=== PATIENT | male | born 1960 | race Caucasian/White ===

== ENCOUNTER 2017-04-26 10:22 | Day surgery (SDC) | payer MEDICARE ==
[~2017-04-26] VITALS: Ht 179.1 cm; Wt 97.4 kg
[~2017-04-26 10:22] MED LIST: ALPR0.5T99 PO; CEPH500C3 PO; LORT7.5T3 PO; PROZ20CA11 PO
[2017-04-26 10:57] VITALS: BP 156/71; PULSE 75; RESP 18; TEMP 98; O2SAT 98
[2017-04-26] MEDS ORDERED: ASPI81CH CHEW (10:58)
[2017-04-26 11:09] LABS: AUTOMATED NEUTROPHIL # 2.6 TH/MM3 (1.8-7.7); BASOPHIL % 0.9 % (0.0-2.0); EOSINOPHIL # 0.4 TH/MM3 (0-0.4); EOSINOPHIL % 7.3 % (0.0-4.0); HEMATOCRIT 39.5 % (39.0-51.0); HEMO FLAGS DIFF FINAL; LYMPH % 30.3 % (9.0-44.0); LYMPHOCYTE # 1.5 TH/MM3 (1.0-4.8); MEAN CELL VOLUME 86.2 FL (80.0-100.0); MEAN CORPUSCULAR HEMOGLOBIN 30.2 PG (27.0-34.0); NEUT % 54.5 % (16.0-70.0); PLATELET COUNT 164 TH/MM3 (150-450); RED BLOOD COUNT 4.58 MIL/MM3 (4.50-5.90); RED CELL DISTRIBUTION WIDTH 13.1 % (11.6-17.2); WHITE BLOOD COUNT 4.9 TH/MM3 (4.0-11.0)
[2017-04-26 11:14] LABS: INTERNATIONAL NORMALIZED RATIO 0.9 RATIO; PROTHROMBIN TIME - PATIENT 10.4 SEC (9.8-11.6)
[2017-04-26] MEDS ORDERED: ASPIRIN 81 MG CHEW TAB PO SCH (11:15)
[2017-04-26 11:23] LABS: BICARBONATE 25.7 MEQ/L (21.0-32.0); POTASSIUM 3.6 MEQ/L (3.5-5.1)
[2017-04-26] MEDS ORDERED: HEPARIN-NS/PF INJ 500 ML ONE (12:24)
[2017-04-26] MEDS ORDERED: MIDAZOLAM HCL 2 MG/2 ML VIAL ONE (12:30)
[2017-04-26] MEDS ORDERED: SODIUM CHLORIDE 0.9% FLUSH 10 ML FLUSH IV FLUSH PRN (13:00)
[2017-04-26] MEDS ORDERED: MISC INFORMATION XX ONE (13:00)
--- NOTE | 2017-04-26 13:10 | CATHPROC ---
[employer] HIS Report Study Information Study Number Admission Scheduled Start Study Start [id number] Apr 26 2017 10:22AM 04/26/2017 Apr 26 2017 12:05PM [place] [facility] Cardiac Catheterization Admit Source Facility Department Other [facility] - Director Of Consumer Marketing Physician and Clinical Staff Initial Sonny Lau Rotary Cutter Operator So Schofield,ANNIE Other cathlab, cathlab Recorder Alma Rust,RT(R) TECH2 Scrub Tony Spence,RT(R) Procedures Performed Procedure Location (Site) Vessel Name Coronary Angiograms LCA Left Coronary Coronary Angiograms RCA Right Coronary LV Gram-hand inj. LV LV Ventricle Equipment Time Tax Representative Description Size Mfg Part Number Used/Scraped TRANSDUCER, TRUWAVE [id number] 12:06 JAIMES VERDUGO * Used W/STOCKCOCK *[id number] [id number] *[id number] *[id number] 12:06 [employer] IND[employer]RIES PACK, CCL CUSTOM * Used *[id number] 12:06 [employer] PACER PEN, SKIN DUAL W/ RULER * Used *[id number] 12:06 [employer]ubs WIRE, 3MMJ .035 180CM 180CM Used *[id number] 12:06 NAMIC MANIFOLD, 4 PORT * Used *[id number] 12:06 NYCOMED OMNIPAQUE, 350 MG, 150ML 150ML [id number] Used [id number] 12:06 LÓPEZ MEDICAL BLANKET,WARM AIR CCL * Used *[id number] 12:06 [email or web address] MEDICAL SHEATH, FR4 TERUMO (10CM) FR 4 [id number] Used History: Current Medications Medication Dosage/Unit Route Frequency Last Date/Time Taken ASA LANTUS History: Allergies Allergy Reaction No Known Allergies History: Risk Factors Family History of Hypertension Dyslipidemia Previous CO Previous Heart Failure Premature CAD No No Yes No No Prior Valve Prior PCI Prior CABG Surgery No No No Cerebrovascular Peripheral Artery Chronic Lung On Dialysis Diabetes Disease Disease Disease No No No No No History: Symptoms/Diagnosis Selection Items Chest pain History: Stress Tests Stress or Imaging Studies Performed No History: Other Current Smoker Method Packs a Day Years Used Pack Years Yes Cigarettes 1 40 40 Labs Hgb (g/dl) Hct (%) RBC (MIL/MM3) WBC (l/cumm) Platelets (thousands) 11.60-17.00 35.00-51.00 4.00-5.90 4.00-11.00 150.00-450.00 13.8 39.5 4.5 4.9 164 Glucose (mg/dl) BUN (mg/dl) Creatinine (mg/dl) BUN:Creatinine (1:x) 74.00-106.00 7.00-18.00 0.50-1.30 10.00-20.00 95 13 0.9 14.4 Na (meq/l) K (meq/l) Cl (meq/l) CO2 (mmol/L) Ca (mg/dl) 136.00-145.00 3.50-5.10 98.00-107.00 21.00-32.00 8.50-10.10 141 3.6 108 25.7 8.6 PT (sec) INR (PTT:PT) 9.80-11.60 0.90-1.10 10.4 0.9 CPK-MB (ng/ML) 0.50-3.60 Not Drawn Medication Medication Total Dose (Bolus/Oral) Medication Total Dosage/Unit 1% XYLOCAINE 20 mL Medications (Bolus/Oral) Medication Time Given Dosage/Unit Administered By Reason 1% XYLOCAINE 04/26/2017 12:46:37 PM 20 mL Sonny Cuellar 20 mL 1% XYLOCAINE given in lab by Sonny Cuellar in Right Groin via Subcutaneous. Ordered by Sonny Zacarias. Medication (Drip) Medication Time Given Dosage/Unit Concentration/Unit Diluent (ml) Solution IV Solutions 04/26/2017 12:22:05 PM 0 mL (IV) 500 NaCl .9 IV Solutions given pre op by cathlab cathlab in Left Forearm via Peripheral IV. Pump/Drip Flow = 20 ml/hr using NaCl .9. Ordered by Sonny Cuellar. Initial Case Assessment Cardiovascular HR Rhythm NIBP Chest Pain 65 sr 148/72 0 Edema Present Skin color Skin None Normal Warm Dry Circulatory - Right Pulses Dorsalis Pedis Femoral 2 2 Scale (0,1,2,3,4,d) Circulatory - Left Pulses Dorsalis Pedis Femoral 2 2 Scale (0,1,2,3,4,d) Neurological State Oriented to time-place- Alert Moves all extremities person Respiration - General Respiration Rate SpO2 (%) (B/min) 18 98 Final Case Assessment Cardiovascular HR Rhythm NIBP Chest Pain 82 SR 140/82 0 Edema Present Skin color Skin None Normal Warm Dry Circulatory - Right Pulses Dorsalis Pedis Femoral 2 2 Scale (0,1,2,3,4,d) Scale (0,1,2,3,4,d) Neurological State Oriented to time-place- Alert Moves all extremities person Respiration - General Respiration Rate SpO2 (%) (B/min) 9 99 Chronological Log Time Study Chronological Log 12:15:51 Patient arrived via Bed. 12:16:19 Patient Name, D.O.B, / Armband Verified By R.N. Vitals capture started with the following parameters, Patient=Adult, Interval=5 min, Initial Pr dypyuo=962 mmHg, 12:21:24 Deflation Rate=5 mmHg 12:21:28 Pre-op and post- op instructions given; patient acknowledges understanding of instructions. 12:21:32 Presedation assessment performed by Director Of Consumer Marketing RN. 12:21:34 Patient has been NPO for More than 6Hrs. 12:21:35 Skin Breakdown- none per patient 12:21:43 Patient Warmer Placed on the Table. 12:21:44 Anna Prominences Protected 12:21:48 A # 20 IV was noted in the Forearm (left). Grade = 0 12:22:05 HR=72 bpm, RCSM=416/72 mmhg, SpO2=95.0 %, Resp=15 B/min, Pain=0, Keaton=10, Hankins=2 IV Solutions given pre op by cathlab, cathlab in Left Forearm via Peripheral IV. Pump/Drip Flow = 20 ml/hr using NaCl 12:22:05 .9. Ordered by Sonny Cuellar. 12:22:38 History and physical on the chart or being dictated. 12:22:44 Right groin prepped with 2% chlorhexidine, and with a 3 min. waiting time. Assessment: Initial Case, HR=65 BPM, Rhythm=sr, EXUG=464/72 mmhg, Chest Pain=0, Edema=None, Col or=Normal, Skin = Warm, Dry Right Pulses: Liu Ped=2, Femoral=2 12:22:48 Left Pulses: Liu Ped=2, Femoral=2 Neurological: State=Alert, Ox3, WAGONER Respiration: Resp=18 B/min, SpO2=98 % 12:25:25 paged 12:27:04 HR=69 bpm, YCKI=540/87 mmhg, SpO2=97.0 %, Resp=13 B/min, Pain=0, Keaton=10, Hankins=2 12:27:33 Reference ECG taken 12:30:11 Pressure channel 1 zeroed. 12:32:03 HR=81 bpm, BMXG=359/84 mmhg, SpO2=96.0 %, Resp=16 B/min, Pain=0, Keaton=10, Hankins=2 12:37:02 HR=92 bpm, QDIY=696/88 mmhg, SpO2=98.0 %, Resp=20 B/min, Pain=0, Keaton=10, Hankins=2 12:42:03 HR=73 bpm, SOUN=710/89 mmhg, SpO2=98.0 %, Resp=10 B/min, Pain=0, Keaton=10, Hankins=2 12:42:40 MD arrived. 12:42:54 MD arrived. 12:44:57 History and physical on the chart or being dictated. 12:45:36 History and physical on the chart or being dictated. 12:45:51 Contrast Scanned Time Out. Correct patient, correct procedure,correct physician, ,power injector not loaded with contrast with surgical 12:45:53 team present. Time Out Concurred by MD, individual staff and SENIOR ENVIRONMENTAL CONSULTANT in procedure 12:46:33 Case Start 20 mL 1% XYLOCAINE given in lab by Sonny Cuellar in Right Groin via Subcutaneous. Ordered by Alisa, 12:46:37 Sonny. 12:47:04 HR=73 bpm, NTTR=149/92 mmhg, SpO2=99.0 %, Resp=17 B/min, Pain=0, Keaton=10, Hankins=2 12:47:20 Access site was Right Femoral Artery. 12:47:28 A SHEATH, FR4 TERUMO (10CM) FR 4 was advanced into the Fem Art (right) using the Percutaneo us technique. A JR 4.0 INFINITI CATHETER FR 4 was advanced over a wire. OMNIPAQUE, 350 MG, 150ML 150ML was us ed for 12:47:43 injections. Recorded Pressure: LV, UA=336, Condition=Condition 1 12:49:18 (Left Ventricle) LV 156/12/36 Recorded Pressure: LV, HR=85, Condition=Condition 1 12:49:18 (Left Ventricle) LV 160/-13/40 Recorded Pressure: LV, Ao, NS=822, Condition=Condition 1 12:49:21 (Left Ventricle) LV 157/11/44, (Aorta) Ao 152/89/119 Recorded Pressure: Ao, HR=85, Condition=Condition 1 12:50:04 (Aorta) Ao 132/80/105 12:50:19 The LV was manually injected with 8 cc's and visualized. OMNIPAQUE, 350 MG, 150ML 150ML use d. 12:50:30 The RCA was injected and visualized at various angles. OMNIPAQUE, 350 MG, 150ML 150ML used . 12:50:45 Catheter was removed A JL 4.0 INFINITI CATHETER FR 4 was advanced over a wire. OMNIPAQUE, 350 MG, 150ML 150ML was us ed for 12:51:57 injections. 12:52:03 HR=82 bpm, HRJS=752/85 mmhg, SpO2=99.0 %, Resp=9 B/min, Pain=0, Keaton=10, Hankins=2 12:52:03 The LCA was injected and visualized at various angles. OMNIPAQUE, 350 MG, 150ML 150ML used . 12:52:16 Catheter was removed Assessment: Final Case, HR=82 BPM, Rhythm=SR, BWSO=823/82 mmhg, Chest Pain=0, Edema=None, Color =Normal, Skin = Warm, Dry 12:52:50 Right Pulses: Liu Ped=2, Femoral=2 Neurological: State=Alert, Ox3, WAGONER Respiration: Resp=9 B/min, SpO2=99 % 12:53:40 Case End 12:58:19 Patient moved to stretcher 12:59:56 Catheter(s) removed without difficulty 13:00:10 Sheath(s) left in place, will be removed in Holding Area 13:02:39 Sterile dressing applied to site 13:02:43 No case complications noted. 13:02:45 Cine recording checked. 13:02:51 Bedside Report will be given. 13:02:55 DOCU called. Spoke to SABINO Beal RN 13:03:15 Contrast Scanned End Study - Contrast Media Used In Study Contrast Total Opened (mL) Total Used (mL) Total Wasted (mL) Omnipaque 40 40 0 End Study - Maximum Contrast Load Max Contrast Load (mL) 541.2 End Study - Radiation Exposure Fluoro Time (minutes) 1.1 End Study - Patient Disposition Complications Transferred To No Outpatient Bed
[2017-04-26] MEDS ORDERED: IOHEXOL 350 MG/ML 50 ML BTL (for Cath Lab) OTHER ONE (16:57)
[2017-04-26] MEDS ORDERED: SODIUM CHLORIDE 0.9% FLUSH 10 ML FLUSH IV FLUSH SCH (21:00)
--- NOTE | 2017-04-26 22:50 | EKG ---
Date Performed: 04/26/2017 Time Performed: 11:06:16 PTAGE: 57 years EKG: Sinus rhythm Normal ECG PREVIOUS TRACING : 08/18/2009 08.31 Compared to prior tracing no significant change DOCTOR: Natalie Neil Interpretating Date/Time 04/26/2017 22:50:35
--- NOTE | 2017-04-28 06:56 | MA ---
cc: ERIKA GROSSMAN M.D. DATE: 04/26/2017 PROCEDURE Left heart catheterization, left ventriculography, coronary angiography. INDICATIONS 1. Unstable angina. 2. [place] Cardi[employer] class IV angina. 3. Coronary artery disease. DETAILS OF PROCEDURE The patient was brought to the cardiac catheterization laboratory and prepped and draped in the usual sterile fashion. 10 cc of 1% lidocaine was used to locally anesthetize the right common femoral artery. A 4-Nepali sheath was placed in the right common femoral artery. 4-Nepali JR4 and JL4 catheters were used to perform left and right coronary angiography and left ventriculography. FINDINGS The LV pressures were somewhat indeterminate due to artifact. LV pressures were approximately 110/15-16. Ejection fraction was 65%. The right coronary artery is a very large dominant vessel. There is mild plaque in the proximal segment up to 5-10% angiographically. The left main coronary artery has no significant disease angiographically. The left circumflex vessel has no significant disease angiographically. The first, second and third obtuse marginal vessels are small vessels with no significant disease angiographically. The fourth obtuse marginal vessel is a medium size vessel with no significant disease angiographically. The left circumflex vessel terminates into two small posterolateral arteries with no significant disease angiographically. The LAD is transapical, has mild diffuse disease in the proximal-mid segment up to 20% angiographically. The first diagonal artery is a small artery with no significant disease angiographically. The second diagonal artery is a medium-sized vessel with no significant disease angiographically. CONCLUSIONS 1. Angiographically mild two-vessel coronary artery disease in a right-dominant system as detailed above. 2. Normal LV systolic function, ejection fraction 65%. RECOMMENDATIONS Recommend medical management of coronary artery disease and cardiac risk factor modification. Note, I personally instructed the patient to continue aspirin 81 mg daily. Will discuss risks and benefits of statins when the patient follows up in my office April, which I have instructed him to do. MD MINERVA Marsh/KARIS /1:02 PM /8:18 AM
== END 2017-04-26 15:17 | disposition home or self-care (01) ==
LOC: HDIC 10:22 → HCAT 10:22
PROVIDERS: ATTEND Internal Medicine Interventional Cardiology
DX: I25.110 Atherosclerotic heart disease of native coronary artery with unstable angina pectoris (principal); I45.4 Nonspecific intraventricular block; R55 Syncope and collapse; E78.2 Mixed hyperlipidemia; Z01.818 Encounter for other preprocedural examination; Z01.810 Encounter for preprocedural cardiovascular examination
CPT/HCPCS: 80048; 85025; 85610; 93005; 93458; C1769; C1893; J1644; J2250; Q9967